=== PATIENT | male | born 1975 | race American Indian/Alaskan Native ===

== ENCOUNTER 2017-05-03 12:15 | Emergency (ER) | payer SELFPAY ==
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
[2017-05-03] MEDS ORDERED: TORADOL IM ONE (14:02)
--- NOTE | 2017-05-03 14:55 | XRay Report ---
Lumbar spine 2 views: History: Low back pain. Findings: Normal height of vertebral bodies. Decrease in height of lumbosacral interspace. Sclerotic articular surfaces with early degenerative change. No fracture. No paravertebral mass or soft tissue calcification. Impression: Early degenerative change lumbosacral interspace.
--- NOTE | 2017-05-03 14:56 | XRay Report ---
Thoracic spine 2 views: History: Back pain. Findings: Normal height of vertebral bodies and intervertebral disc. Normal articular surfaces. No fracture. No paravertebral mass. Impression: No definite bony or articular abnormality dorsal spine.
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
[2017-05-03 17:16] VITALS: BP 132/89
== END 2017-05-03 17:14 | disposition home or self-care (01) ==
LOC: ED 12:15
DX: S39.012A Strain of muscle, fascia and tendon of lower back, initial encounter (principal); V89.2XXA Person injured in unspecified motor-vehicle accident, traffic, initial encounter; Y93.89 Activity, other specified; Y92.89 Other specified places as the place of occurrence of the external cause; Y99.8 Other external cause status
CPT/HCPCS: 72072; 72100; 96372; 99283; J1885

== ENCOUNTER 2018-11-15 18:47 | Emergency (ER) | payer OTHER ==
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
[2018-11-15 20:11] VITALS: BP 147/105
--- NOTE | 2018-11-15 22:06 | Cat Scan Report ---
PROCEDURE: CT lumbar spine without contrast. TECHNIQUE: Computerized axial tomography of the lumbar spine was performed from T12 to the sacrum wi thout contrast material. CT DOSE LENGTH PRODUCT: 403.9 mGycm HISTORY: Back injury, pain. COMPARISONS: None. FINDINGS: The lumbar vertebrae have normal height and alignment. There are no fractures. There is no spondyloly sis. There is no spondylolisthesis. There is an anterior surgical fusion at L4 and L5. The disc space s are well-maintained. The spinal canal is widely patent. The posterior elements appear intact. The p aravertebral soft tissues are unremarkable. IMPRESSION: No evidence of acute lumbar spine injury. Previous surgical fusion at L4 and L5. This document is electronically signed by Curt Butt MD., November 15 2018 10:04:55 PM ET
[2018-11-15] MEDS ORDERED: IBUPROFEN PO ONE (23:19)
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
== END 2018-11-16 00:12 | disposition home or self-care (01) ==
LOC: ED 18:47
DX: S39.012A Strain of muscle, fascia and tendon of lower back, initial encounter (principal); Z79.899 Other long term (current) drug therapy; V49.49XA Driver injured in collision with other motor vehicles in traffic accident, initial encounter; Y93.89 Activity, other specified; Y92.89 Other specified places as the place of occurrence of the external cause; Y99.8 Other external cause status
CPT/HCPCS: 72131